=== PATIENT | male | born 1990 | race African-American/Black ===

== ENCOUNTER 2023-08-13 12:54 | Emergency (ER) | payer MEDICAID, OTHER ==
[~2023-08-13] VITALS: Ht 185.4 cm; Wt 95.0 kg
[2023-08-13 13:21] VITALS: O2SAT 100
[2023-08-13] MEDS ORDERED: BACITRACIN ZINC OINT UDPKT TOP ONE (14:15)
[2023-08-13] MEDS ORDERED: SULF1TAB48 MT (14:48)
[2023-08-13] MEDS ORDERED: CEPH500C2 MT (14:48)
[2023-08-13] MEDS ORDERED: NAPR-681 MT (14:48)
[2023-08-13 15:44] VITALS: BP 127/83; PULSE 79; RESP 18; TEMP 98.4
== END 2023-08-13 15:46 | disposition home or self-care (01) ==
LOC: ER 13:35
DX: L02.415 Cutaneous abscess of right lower limb (principal)
CPT/HCPCS: 99283